=== PATIENT | female | born 1990 | race Caucasian/White ===

== ENCOUNTER 2019-07-02 05:15 | Inpatient (IN) | payer BC ==
[~2019-07-02] VITALS: Ht 177.8 cm; Wt 81.6 kg
[~2019-07-02 05:15] MED LIST: ASPI-858 PO; PREN1TAB49 PO
[2019-07-02] MEDS ORDERED: LR 1,000 ML IV SCH ×3 (05:23→09:02)
[2019-07-02] MEDS ORDERED: CEFAZOLIN 2 GM IVPB PREMIX 50 ML IV ONE (05:30)
[2019-07-02 05:54] LABS: BASOPHILS % (AUTO) 0.3 % (0.0-2.0); EOSINOPHILS # (AUTO) 0.1 K/uL (0.0-0.4); EOSINOPHILS % (AUTO) 1.3 % (0.0-4.0); HEMATOCRIT 36.4 % (36-48); HEMOGLOBIN 12.7 g/dL (12.0-16.0); LYMPHOCYTES # (AUTO) 1.9 K/uL (1.0-5.5); MEAN CORPUSCULAR HEMOGLOBIN 34 pg (27-31); MEAN CORPUSCULAR HGB CONC 35 % (32-36); MEAN CORPUSCULAR VOLUME 99 fL (79.0-98.0); MONOCYTES # (AUTO) 0.6 K/uL (0.0-1.0); MONOCYTES % (AUTO) 6.1 % (1.7-9.3); NEUTROPHILS # (AUTO) 7.5 K/uL (1.8-7.7); NEUTROPHILS % (AUTO) 73.3 % (40.0-70.0); PLATELET COUNT (AUTO) 193 K/uL (130-430); RED CELL DISTRIBUTION WIDTH 12.2 % (9.0-15.0); WHITE BLOOD COUNT (AUTO) 10.2 K/uL (4.8-10.8)
[2019-07-02 05:59] LABS: BILIRUBIN,URINE NEGATIVE (NEGATIVE); BLOOD, URINE NEGATIVE (NEGATIVE); CLARITY/URINE CLEAR (CLEAR); COLOR,URINE YELLOW (YELLOW); GLUCOSE,URINE NEGATIVE (NEGATIVE); KETONES,URINE NEGATIVE (NEGATIVE); LEUKOCYTE ESTERASE ,URINE NEGATIVE (NEGATIVE); NITRITE, URINE NEGATIVE (NEGATIVE); PH,URINE 6.5 (5.0-8.0); PROTEIN URINE NEGATIVE (NEGATIVE)
[2019-07-02 06:21] VITALS: BP_SYST 129
[2019-07-02] MEDS ORDERED: KETAMINE 30 MG/3 ML SYRINGE IV ONE (08:00)
[2019-07-02] MEDS ORDERED: MIDAZOLAM HCL 5 MG/5 ML VIAL IVP ONE (08:00)
[2019-07-02] MEDS ORDERED: LR 1,000 ML IV.SOLN IV ONE (08:00)
[2019-07-02] MEDS ORDERED: OXYTOCIN 10 UNIT/ML VIAL IV ONE (08:00)
[2019-07-02] MEDS ORDERED: MORPHINE SULFATE 10MG/10ML PF AMP EP ONE (08:00)
[2019-07-02] MEDS ORDERED: NS IRRIG SOLN 1000 ML IR ONE (08:00)
[2019-07-02] MEDS ORDERED: ONDANSETRON HCL 4 MG/2 ML VIAL IVP ONE (08:00)
[2019-07-02] MEDS ORDERED: DIPHENHYDRAMINE INJ 50 MG/ML VIAL IM PRN (09:00)
[2019-07-02] MEDS ORDERED: ONDANSETRON HCL 4 MG/2 ML VIAL IVP PRN (09:00)
[2019-07-02] MEDS ORDERED: METOCLOPRAMIDE HCL 10 MG/2 ML VIAL IVP PRN (09:00)
[2019-07-02] MEDS ORDERED: MORPHINE 4 MG/ML INJ. SYRINGE IVP PRN ×3 (09:00)
[2019-07-02] MEDS ORDERED: MORPHINE SULFATE 10MG/10ML PF AMP SP SCH (09:00)
[2019-07-02] MEDS ORDERED: NALOXONE HCL 0.4 MG/ML AMP (NARCAN) IVP PRN (09:00)
[2019-07-02] MEDS ORDERED: OXYTOCIN/0.9 % SODIUM CHLORIDE 0 ML IV ONE (09:09)
[2019-07-02 09:10] VITALS: BP_SYST 138
[2019-07-02] MEDS ORDERED: DIPH-TET-PERTUS Vaccine 0.5 ML VIAL (ADACEL) I.M. PRN (09:15)
[2019-07-02] MEDS ORDERED: ANUSOL 1 EA SUPP.RECT (PREPARATION H) RC PRN (09:15)
[2019-07-02] MEDS ORDERED: LANOLIN 7 GM OINT. TP PRN (09:15)
[2019-07-02] MEDS ORDERED: TEMAZEPAM 15 MG CAPSULE PO PRN (09:15)
[2019-07-02] MEDS ORDERED: SENNOSIDES/DOCUSATE SODIUM 1 TAB TABLET(SENOKOT-S) PO PRN (09:15)
[2019-07-02] MEDS ORDERED: OXYCODONE/ACETAMINOPHEN *10*mg/325 mg TABLET PO PRN (09:15)
[2019-07-02] MEDS ORDERED: BISACODYL 10 MG/SUPPOSITORY RC PRN (09:15)
[2019-07-02] MEDS ORDERED: RHO(D) IMMUNE GLOBULIN/MALTOSE 1500 UNITS/1.3 ML (WINHRO) IM PRN (09:15)
[2019-07-02] MEDS ORDERED: HYDROcodone/ACETAMIN 5-325 MG TAB (NORCO/ VICODIN) PO PRN (09:15)
[2019-07-02] MEDS ORDERED: MEASLES,MUMPS&RUBELLA VACC/PF 12500 UNIT/0.5 ML VIAL SUBQ PRN (09:15)
[2019-07-02] MEDS: OXYTOCIN/0.9 % SODIUM CHLORIDE 1,000 ML IV SCH (17:30)
[2019-07-02] MEDS: KETOROLAC TROMETHAMINE 30 MG VIAL IVP SCH (18:27)
[2019-07-02] MEDS: CEFAZOLIN 1 GM IVPB PREMIX 50 ML IV SCH (18:27)
[2019-07-03] MEDS: KETOROLAC TROMETHAMINE 30 MG VIAL IVP SCH ×3 (00:22→12:30)
[2019-07-03] MEDS: OXYTOCIN/0.9 % SODIUM CHLORIDE 1,000 ML IV SCH (02:15)
[2019-07-03] MEDS: CEFAZOLIN 1 GM IVPB PREMIX 50 ML IV SCH ×2 (05:50)
[2019-07-03 06:55] LABS: BASOPHILS % (AUTO) 0.4 % (0.0-2.0); EOSINOPHILS # (AUTO) 0.1 K/uL (0.0-0.4); EOSINOPHILS % (AUTO) 0.6 % (0.0-4.0); HEMATOCRIT 29.7 % (36-48); HEMOGLOBIN 10.1 g/dL (12.0-16.0); LYMPHOCYTES # (AUTO) 1.7 K/uL (1.0-5.5); LYMPHOCYTES % (AUTO) 14.8 % (20.5-51.5); MEAN CORPUSCULAR HEMOGLOBIN 34 pg (27-31); MEAN CORPUSCULAR HGB CONC 34 % (32-36); MEAN CORPUSCULAR VOLUME 99 fL (79.0-98.0); MONOCYTES # (AUTO) 0.8 K/uL (0.0-1.0); MONOCYTES % (AUTO) 7.1 % (1.7-9.3); NEUTROPHILS % (AUTO) 77.1 % (40.0-70.0); PLATELET COUNT (AUTO) 148 K/uL (130-430); RED CELL DISTRIBUTION WIDTH 12.1 % (9.0-15.0); WHITE BLOOD COUNT (AUTO) 11.7 K/uL (4.8-10.8)
[2019-07-03] MEDS: SIMETHICONE 80 MG TAB.CHEW PO PRN ×4 (12:30→22:18)
[2019-07-03] MEDS: IBUPROFEN 600 MG TABLET PO SCH (18:00)
[2019-07-03] MEDS: OXYCODONE/ACETAMINOPHEN 5-325 TABLET PO PRN ×2 (19:24→22:17)
[2019-07-04] MEDS: IBUPROFEN 600 MG TABLET PO SCH ×3 (00:03→17:23)
[2019-07-04] MEDS: SIMETHICONE 80 MG TAB.CHEW PO PRN ×3 (06:10→17:23)
[2019-07-04] MEDS: OXYCODONE/ACETAMINOPHEN 5-325 TABLET PO PRN ×2 (08:36→14:29)
[2019-07-04] MEDS: DOCUSATE SODIUM 100 MG CAPSULE PO PRN (17:23)
[2019-07-05] MEDS: IBUPROFEN 600 MG TABLET PO SCH ×3 (00:30→18:03)
[2019-07-05] MEDS: DOCUSATE SODIUM 100 MG CAPSULE PO PRN ×2 (00:55→12:30)
[2019-07-05] MEDS: SIMETHICONE 80 MG TAB.CHEW PO PRN ×2 (00:55→12:30)
== END 2019-07-05 19:40 | disposition home or self-care (01) | DRG 785 ==
LOC: SPU 05:15
PROVIDERS: ADMIT Specialist; ATTEND Specialist
PROC: 0UL70CZ Occlusion of Bilateral Fallopian Tubes with Extraluminal Device, Open Approach (ICD-10-PCS; 2019-07-02)
PROC: 0KQK0ZZ Repair Right Abdomen Muscle, Open Approach (ICD-10-PCS; 2019-07-02)
PROC: 10D00Z1 Extraction of Products of Conception, Low, Open Approach (ICD-10-PCS; principal; 2019-07-02 08:00)
DX: O34.211 Maternal care for low transverse scar from previous cesarean delivery (principal); Z30.2 Encounter for sterilization; Z37.0 Single live birth; Z3A.38 38 weeks gestation of pregnancy
CPT/HCPCS: 36415; 81003; 85025; 86592; 86886; 86900; 86901; 94760; J0690; J1885; J2250; J2274; J2405; J2590; J7120